=== PATIENT | female | born 1970 | race African-American/Black ===

== ENCOUNTER 2016-12-11 10:05 | Emergency (ER) | payer MEDICAID ==
[~2016-12-11] VITALS: Ht 170.2 cm; Wt 140.0 kg
[2016-12-11 10:20] VITALS: BP 153/73
--- NOTE | 2016-12-11 10:29 | NUR ---
AMBULATED TO ER BED 8
--- NOTE | 2016-12-11 10:31 | NUR ---
44 PRESENT TO ER C/O SEVERE ITCHING ON BILATERAL ARMS X4 DAYS. PT STATES SHE SLEPT AT A FRIENDS COUCH THIS LAST WEEKEND. PT STATES SHE IS CONCERNED THAT SHE MIGHT HAVE BED BUGS. PT STATES SHE HAS BEEN TAKING OTC BENADRYL TO CONTROL THE ITCHING. AAOx4, PERRLA, BREATHING EVEN AND EFFORTLESS. ERMD NOTIFIED OF PATIENT STATUS.
--- NOTE | 2016-12-11 10:33 | NUR ---
Patient being evaluated by physician at bedside.
--- NOTE | 2016-12-11 11:04 | NUR ---
Patient discharged with v/s stable. Written and verbal after care instructions given and explained. Patient alert, oriented and verbalized understanding of instructions. Ambulatory with steady gait. All questions addressed prior to discharge. ID band removed. Patient advised to follow up with PMD. Rx of MEDROL DOSEPAK 4MG TABLET given. Patient educated on indication of medication including possible reaction and side effects. Opportunity to ask questions provided and answered.
[2016-12-11 11:05] VITALS: BP 153/73
== END 2016-12-11 11:05 | disposition home or self-care (01) ==
LOC: EDBD 10:05 → MED 10:05
DX: L29.9 Pruritus, unspecified (principal); E11.9 Type 2 diabetes mellitus without complications; I50.9 Heart failure, unspecified; I11.0 Hypertensive heart disease with heart failure
CPT/HCPCS: 99283

== ENCOUNTER 2016-12-17 08:33 | Emergency (ER) | payer MEDICAID ==
[~2016-12-17] VITALS: Ht 167.6 cm; Wt 138.8 kg
[2016-12-17 08:50] VITALS: BP 152/67
--- NOTE | 2016-12-17 09:00 | NUR ---
46/F BIB FAMILY C/O HEADACHE, SORE THROAT, COUGH &SOB X4 DAYS. HX COPD, DM, HTN. DENIES N/V/D; SKIN IS PINK/WARM/DRY; AAOX4 WITH EVEN AND STEADY GAIT; LUNGS CLEAR BL; HR EVEN AND REGULAR;PATIENT STATES PAIN OF 5/10 AT THIS TIME; VSS; PATIENT POSITIONED FOR COMFORT; HOB ELEVATED; BEDRAILS UP X2; BED DOWN. ER MD MADE AWARE OF PT STATUS.
--- NOTE | 2016-12-17 09:00 | NUR ---
Ling wise in EDM - 12/17/16 at 0921 by MED1 46/F BIB FAMILY C/O SORE THROAT, COUGH &SOB X4 DAYS. HX COPD, DM, HTN.
--- NOTE | 2016-12-17 09:20 | NUR ---
Patient being evaluated by DR SMITH at bedside.
[2016-12-17] MEDS ORDERED: ALBUTEROL 0.083% 2.5 MG/3 ML NEBU INH ONE (09:25)
[2016-12-17] MEDS ORDERED: ALBUTEROL SULFATE/IPRATROPIU 3 ML SOL IH ONE (09:25)
[2016-12-17] MEDS ORDERED: predniSONE 20 MG TAB PO ONE (09:25)
--- NOTE | 2016-12-17 09:31 | NUR ---
ADMITTING DX: SHORTNESS OF BREATH HX: PATIENT STATES COPD/ASTHMA LOC AWAKE AND ALERT RESPONSIVE TO LEARNING ENGINEER VERBAL COMMANDS SITTING ON GURNEY EDUCATION PROVIDED TO PATIENT WITH ACKNOWLEDGEMENT ON HHN THERAPY AND RESPIRATORY DRUGS HHN THERAPY GIVEN ORDERED ENCOURAGED PATEINT FO DEEP BREATHING DURING THERAPY TOLERATED WELL WIHOUT INCIDENT
--- NOTE | 2016-12-17 09:33 | NUR ---
RT AT BEDSIDE FOR 1ST BREATHING TREATMENT.
--- NOTE | 2016-12-17 09:54 | NUR ---
Patient discharged with v/s stable. Written and verbal after care instructions given and explained. Patient alert, oriented and verbalized understanding of instructions. Ambulatory with steady gait. All questions addressed prior to discharge. ID band removed. Patient advised to follow up with PMD. Rx of AZITHROMYCIN& PREDNISONE given. Patient educated on indication of medication including possible reaction and side effects. Opportunity to ask questions provided and answered.
[2016-12-17 09:55] VITALS: BP 128/61
== END 2016-12-17 09:54 | disposition home or self-care (01) ==
LOC: MED 08:33
DX: J44.9 Chronic obstructive pulmonary disease, unspecified (principal); R06.02 Shortness of breath; R05 Cough; I50.9 Heart failure, unspecified; E11.9 Type 2 diabetes mellitus without complications; I10 Essential (primary) hypertension
CPT/HCPCS: 82948; 94640; 99283; J7512; J7613; J7620

== ENCOUNTER 2017-02-16 20:11 | Emergency (ER) | payer MEDICAID ==
[~2017-02-16] VITALS: Ht 167.6 cm; Wt 140.6 kg
[~2017-02-16 20:11] MED LIST: ALPRAZOLAM 2 MG; AMLODIPINE BESYLATE 10 MG; ASPIRIN 325 MG; DIPHENHYDRAMINE 25 MG; HYDRALAZINE 50 MG; KLOR CON 8 MEQ; LOSARTAN POTASSIUM 100 MG; LYRICA 75 MG; METFORMIN HCL 500 MG TABLET; OXYCODONE APAP; QUETIAPINE FUMARATE 100 MG; RISPERIDONE 3 MG TABLET; SIMVASTATIN 20 MG TABLET; SYMBICORT; TERCONAZOLE; TIOTROPIUM; TOPIRAMATE 50 MG TABLET; [UNRECOGNIZED DRUG - OTHER]; [UNRECOGNIZED DRUG - OTHER]; [UNRECOGNIZED DRUG - OTHER]; [UNRECOGNIZED DRUG - OTHER]; [UNRECOGNIZED DRUG - OTHER]; [UNRECOGNIZED DRUG - SUPPLY]
[2017-02-16 20:14] VITALS: BP 120/75
--- NOTE | 2017-02-16 20:35 | NUR ---
TO ER BED 11
--- NOTE | 2017-02-16 20:39 | NUR ---
PATIENT PRESENTS TO ED WITH C/O GENERALIZED BODYACHES AND FATIGUE X 3 DAYS PT DENIES N/V/D; SKIN IS PINK/WARM/DRY; AAOX4 WITH EVEN AND STEADY GAIT; LUNGS CLEAR BL; HR EVEN AND REGULAR; PT DENIES ANY FEVER, CP, SOB, OR COUGH AT THIS TIME; PATIENT STATES PAIN OF 8/10 AT THIS TIME; VSS; PATIENT POSITIONED FOR COMFORT; HOB ELEVATED; BEDRAILS UP X2; BED DOWN. ER MD MADE AWARE OF PT STATUS.
[2017-02-16] MEDS ORDERED: NACL 0.9% 1,000 ML IV ONE (21:10)
[2017-02-16] MEDS ORDERED: KETOROLAC 30 MG/ML VIAL IVP ONE (21:10)
[2017-02-16 21:47] LABS: APPEARANCE,URINE CLOUDY (CLEAR); BILIRUBIN,URINE NEGATIVE (NEGATIVE); BLOOD, URINE NEGATIVE (NEGATIVE); COLOR,URINE YELLOW (YELLOW); LEUKOCYTE ESTERASE ,URINE 3+ (NEGATIVE); NITRITE, URINE NEGATIVE (NEGATIVE); PH,URINE 6.5 (5.0-9.0); UGLUCOSE NEGATIVE (NEGATIVE)
[2017-02-16 21:54] LABS: RBC,URINE 0-5 (RARE) /HPF (0-5); WBC,URINE TOO MANY TO COUNT /HPF (0-5)
[2017-02-16] MEDS ORDERED: cefTRIAXone 2,000 MG in DEXTROSE 5% 100 ML IV ONE (22:20)
[2017-02-16 22:30] LABS: BASOPHILS # (AUTO) 0.4 K/uL (0.00-0.22); BASOPHILS % (AUTO) 4.9 % (0.0-2.0); EOSINOPHILS # (AUTO) 0.1 K/uL (0-0.4); EOSINOPHILS % (AUTO) 1.3 % (0.0-4.0); HEMATOCRIT 37.8 % (36-48); HEMOGLOBIN 12.3 g/dL (12.0-16.0); LYMPHOCYTES # (AUTO) 3.1 K/uL (2.5-16.5); LYMPHOCYTES % (AUTO) 38.9 % (20.5-51.1); MEAN CORPUSCULAR HEMOGLOBIN 29 pg (27-31); MEAN CORPUSCULAR HGB CONC 33 g/dL (33-37); MEAN CORPUSCULAR VOLUME 88 fL (80-94); MONOCYTES # (AUTO) 0.6 K/uL (0.8-1.0); MONOCYTES % (AUTO) 7.6 % (1.7-9.3); NEUTROPHILS # (AUTO) 3.8 K/uL (1.8-7.7); NEUTROPHILS % (AUTO) 47.3 % (42.2-75.2); PLATELET COUNT (AUTO) 167 K/uL (140-450); RED BLOOD CELL COUNT(AUTO) 4.28 MIL/uL (4.20-5.40); RED CELL DISTRIBUTION WIDTH 13.8 % (11.6-13.7)
[2017-02-16] MEDS ORDERED: cefTRIAXone 2,000 MG VIAL ONE (22:32)
[2017-02-16 22:57] LABS: ALBUMIN 3.4 g/dL (3.4-5.0); ANION GAP 11.8 (8-16); CARBON DIOXIDE 26.6 mmol/L (21-32); CREATININE 1.1 mg/dL (0.6-1.3); POTASSIUM 3.4 mmol/L (3.5-5.1); THYROID STIMULATING HORMONE 3.98 uIU/mL (0.34-3.74); TOTAL BILIRUBIN 0.2 mg/dL (0.0-1.0)
[2017-02-16 23:10] VITALS: BP 119/72
--- NOTE | 2017-02-16 23:11 | NUR ---
Patient discharged with v/s stable. Written and verbal after care instructions given and explained. Patient alert, oriented and verbalized understanding of instructions. Ambulatory with steady gait. All questions addressed prior to discharge. ID band removed. Patient advised to follow up with PMD. Rx of CIPRO 750MG BID given. Patient educated on indication of medication including possible reaction and side effects. Opportunity to ask questions provided and answered.
== END 2017-02-16 23:10 | disposition home or self-care (01) ==
LOC: MED 20:11
DX: N39.0 Urinary tract infection, site not specified (principal); J44.9 Chronic obstructive pulmonary disease, unspecified; E11.9 Type 2 diabetes mellitus without complications; I10 Essential (primary) hypertension; Z79.82 Long term (current) use of aspirin; Z79.899 Other long term (current) drug therapy; Z79.4 Long term (current) use of insulin
CPT/HCPCS: 36415; 80053; 81001; 81025; 84443; 85025; 87086; 96365; 96375; 99284; J0696; J1885; J7030

== ENCOUNTER 2017-04-06 08:28 | Emergency (ER) | payer MEDICAID ==
[~2017-04-06] VITALS: Ht 165.1 cm; Wt 135.7 kg
[2017-04-06 09:26] VITALS: BP 118/84
--- NOTE | 2017-04-06 10:39 | NUR ---
ASSUMED PATIENT CARE, CONCUR WITH TRIAGE ASSESSMENT.
[2017-04-06] MEDS ORDERED: HYDROcodone/APAP 5/325 MG 1 TAB TAB PO ONE (11:25)
[2017-04-06] MEDS ORDERED: KETOROLAC 60 MG/2 ML VIAL IM ONE (11:25)
--- NOTE | 2017-04-06 13:09 | NUR ---
DISPO AND MEDICAL DECISION MAKING, DC HOME WITH INSTRUCTIONS AND PRESCRIPTIONS, UNDERSTOOD BY PATIENT WELL, VSWNL.
== END 2017-04-06 13:09 | disposition home or self-care (01) ==
LOC: MED 08:28
DX: S73.102A Unspecified sprain of left hip, initial encounter (principal); S43.401A Unspecified sprain of right shoulder joint, initial encounter; E11.9 Type 2 diabetes mellitus without complications; I10 Essential (primary) hypertension; M79.7 Fibromyalgia; Z86.73 Personal history of transient ischemic attack (TIA), and cerebral infarction without residual deficits; W18.2XXA Fall in (into) shower or empty bathtub, initial encounter; Y93.89 Activity, other specified; Y92.091 Bathroom in other non-institutional residence as the place of occurrence of the external cause; Y99.8 Other external cause status
CPT/HCPCS: 73030; 73552; 96372; 99284; J1885

== ENCOUNTER 2017-04-17 08:35 | Emergency (ER) | payer MEDICAID ==
[~2017-04-17] VITALS: Ht 167.6 cm; Wt 131.1 kg
--- NOTE | 2017-04-17 08:40 | NUR ---
CALLED PT TO TRIAGE. PT WAS STANDING TO COME TO TRIAGE AND STATES " I LOST MY BALANCE AND FELL"; I WAS HOLDING THE DOOR OPEN FOR PT WHILE PT WAS STANDING. I IMMEDIATELY GOT A WHEELCHAIR AND ASSISTED THE PT TO TRIAGE; AFTER TRIAGE, PT TAKEN TO BED 10 AND PT STATEED " I CAN GET TO THE BED BY MYSELF"; PT ABLE TO GET TO THE BED, BUT C/O RT HIP PAIN, 5/10 AT THIS TIME; OFFERED PT ICE, BUT PT STATES "I'M OK"; NO OBIVIOUS DEFORMITY, NO ERYTHEMA, AND NO SWELLING NOTED TO SITE AT THIS TIME; ER MD DR. HENDERSON, CHARGE NURSE COLIN, AND PRIMARY NURSE NOTIFIED.
[2017-04-17 08:41] VITALS: BP 119/52
--- NOTE | 2017-04-17 08:48 | NUR ---
Patient to bed 10. RN evaluating patient at bedside.
--- NOTE | 2017-04-17 08:50 | NUR ---
46F BIB SELF C/O LEFT FOOT, 4TH DIGIT PAIN S/P GETTING 2 PACKS OF FROZEN TURKEY, AND A PACK OF HOT LINKS FALLING ON TOE X LAST NIGHT. HX: DM, COPD, HTN, ENLARGED HEART, FIBROMYALGIA, NEUROPATHY, SCIATICA, SCHIZOEFFECTIVE RX: SEROQUEL, RISPERADOL, XANAX, METFORMIN, PT STATES " THE REST IS IN HERE" . DENIES N/V/D; SKIN IS PINK/WARM/DRY; AAOX4 WITH EVEN AND STEADY GAIT; LUNGS CLEAR BL; HR EVEN AND REGULAR; PT DENIES ANY FEVER, CP, SOB, OR COUGH AT THIS TIME; PATIENT STATES PAIN OF 10/10 AT THIS TIME; VSS; PATIENT POSITIONED FOR COMFORT; HOB ELEVATED; BEDRAILS UP X2; BED DOWN. ER MD MADE AWARE OF PT STATUS.
[2017-04-17] MEDS ORDERED: KETOROLAC 60 MG/2 ML VIAL IM ONE (10:00)
--- NOTE | 2017-04-17 10:44 | NUR ---
BREAKFAST TRAY PROVIDED TO AAO, COOPERATIVE PT
[2017-04-17] MEDS ORDERED: HYDROcodone/APAP 5/325 MG 1 TAB TAB PO ONE (11:50)
--- NOTE | 2017-04-17 11:54 | NUR ---
AAO PT AMBULATES TO THE RESTROOM
[2017-04-17 12:05] VITALS: BP 147/83
--- NOTE | 2017-04-17 12:05 | NUR ---
Patient discharged with v/s stable. Written and verbal after care instructions given and explained. Patient alert, oriented and verbalized understanding of instructions. Ambulatory with steady gait. All questions addressed prior to discharge. ID band removed. Patient advised to follow up with PMD. Rx of NORCO, IBUPROFEN given. Patient educated on indication of medication including possible reaction and side effects. Opportunity to ask questions provided and answered.
== END 2017-04-17 12:05 | disposition home or self-care (01) ==
LOC: MED 08:35
DX: S92.505A Nondisplaced unspecified fracture of left lesser toe(s), initial encounter for closed fracture (principal); J44.9 Chronic obstructive pulmonary disease, unspecified; E11.9 Type 2 diabetes mellitus without complications; I10 Essential (primary) hypertension; Z86.73 Personal history of transient ischemic attack (TIA), and cerebral infarction without residual deficits; W20.8XXA Other cause of strike by thrown, projected or falling object, initial encounter; Y93.89 Activity, other specified; Y92.89 Other specified places as the place of occurrence of the external cause; Y99.8 Other external cause status
CPT/HCPCS: 73660; 96372; 99284; J1885

== ENCOUNTER 2017-04-29 07:22 | Emergency (ER) | payer MEDICAID ==
[~2017-04-29] VITALS: Ht 167.6 cm; Wt 134.3 kg
[2017-04-29 07:24] VITALS: BP_SYST 114; BP_SYST 94; BP_DIAS 39; BP_DIAS 68
--- NOTE | 2017-04-29 07:30 | NUR ---
Pt taken to bed 12.
--- NOTE | 2017-04-29 07:40 | NUR ---
46f bib self with rash to bl hands and feet x 2 days with itchness. no swelling noted to tongue, lips, or face. Pt denies any sob at this time. No visible rash to bl upper or lower extremities. Pt is aox4 with steady gait. RR are even and unlabored. Pt positioned to comfort, bed down. NAD. All needs met at this time.
--- NOTE | 2017-04-29 07:45 | NUR ---
DR REGALADO AT BEDSIDE
[2017-04-29 08:00] VITALS: BP 114/68
--- NOTE | 2017-04-29 08:00 | NUR ---
Patient discharged with v/s stable. Written and verbal after care instructions given and explained. Patient alert, oriented and verbalized understanding of instructions. Ambulatory with steady gait. All questions addressed prior to discharge. ID band removed. Patient advised to follow up with PMD. Rx of Elimite given. Patient educated on indication of medication including possible reaction and side effects. Opportunity to ask questions provided and answered.
== END 2017-04-29 08:00 | disposition home or self-care (01) ==
LOC: MED 07:22
DX: L29.9 Pruritus, unspecified (principal); J44.9 Chronic obstructive pulmonary disease, unspecified; E11.9 Type 2 diabetes mellitus without complications; I10 Essential (primary) hypertension; Z86.73 Personal history of transient ischemic attack (TIA), and cerebral infarction without residual deficits; Z79.899 Other long term (current) drug therapy
CPT/HCPCS: 82948; 99282

== ENCOUNTER 2017-06-29 12:27 | Emergency (ER) | payer MEDICAID ==
[~2017-06-29] VITALS: Ht 170.2 cm; Wt 139.7 kg
[2017-06-29 12:32] VITALS: BP 129/81
[2017-06-29 12:50] VITALS: BP 129/81
--- NOTE | 2017-06-29 12:53 | NUR ---
PATIENT BIB SELF FOR SMALL LACERATION TO RIGHT ANKLE, NO BLEEDING. TO BED 11 WOUND WAS CLEANED AND DRESSED AND BANDAGE APPLIED PATIENT THEN GOT UP AND LEFT.
--- NOTE | 2017-06-29 12:54 | NUR ---
NO DISCHARGE INSTRUCTIONS OR PAPERWORK GIVEN PATIENT ELOPED AFTER TREATMENT.
== END 2017-06-29 12:50 | disposition left against medical advice (07) ==
LOC: MED 12:27
DX: S91.012A Laceration without foreign body, left ankle, initial encounter (principal); J44.9 Chronic obstructive pulmonary disease, unspecified; E11.9 Type 2 diabetes mellitus without complications; F03.90 Unspecified dementia, unspecified severity, without behavioral disturbance, psychotic disturbance, mood disturbance, and anxiety; Z86.73 Personal history of transient ischemic attack (TIA), and cerebral infarction without residual deficits; X58.XXXA Exposure to other specified factors, initial encounter; Y93.89 Activity, other specified; Y92.89 Other specified places as the place of occurrence of the external cause; Y99.8 Other external cause status
CPT/HCPCS: 99283

== ENCOUNTER 2017-07-04 14:07 | Emergency (ER) | payer MEDICAID ==
[~2017-07-04] VITALS: Ht 170.2 cm; Wt 142.1 kg
[2017-07-04 14:13] VITALS: BP 148/81
--- NOTE | 2017-07-04 14:22 | NUR ---
PATIENT TO BED #3 VIA W/C
--- NOTE | 2017-07-04 14:35 | NUR ---
PATIENT PRESENTS TO ED WITH C/O ABRASION ON LATERAL LT ANKLE FROM SHAVING X 5 DAYS HX; HTN, DM, CHF . PATIENT STATES PAIN OF 8/10 AT THIS TIME; VSS; PATIENT POSITIONED FOR COMFORT; HOB ELEVATED; BEDRAILS UP X2; BED DOWN. ER MD MADE AWARE OF PT STATUS.
[2017-07-04] MEDS ORDERED: KETOROLAC 30 MG/ML VIAL IM ONE (14:50)
[2017-07-04] MEDS ORDERED: NEOMYCIN/POLYMYXIN/BACITRACIN 0.9 GM/1 PKT TP ONE (14:50)
--- NOTE | 2017-07-04 14:55 | NUR ---
XRAY AT BEDSIDE
--- NOTE | 2017-07-04 15:20 | NUR ---
WOUND CARE DONE BY EMT AT BEDSIDE, PT TOLERATED WELL.
[2017-07-04 16:05] VITALS: BP 138/87
--- NOTE | 2017-07-04 16:05 | NUR ---
Patient discharged with v/s stable. Written and verbal after care instructions given and explained. Patient alert, oriented and verbalized understanding of instructions. Ambulatory with steady gait. All questions addressed prior to discharge. ID band removed. Patient advised to follow up with PMD. Rx of NORCO, NAPROSYN, KEFLEX given. Patient educated on indication of medication including possible reaction and side effects. Opportunity to ask questions provided and answered.
== END 2017-07-04 16:05 | disposition home or self-care (01) ==
LOC: MED 14:07
DX: S90.512A Abrasion, left ankle, initial encounter (principal); M25.472 Effusion, left ankle; J44.9 Chronic obstructive pulmonary disease, unspecified; E11.9 Type 2 diabetes mellitus without complications; I10 Essential (primary) hypertension; F03.90 Unspecified dementia, unspecified severity, without behavioral disturbance, psychotic disturbance, mood disturbance, and anxiety; Z79.899 Other long term (current) drug therapy; Z79.84 Long term (current) use of oral hypoglycemic drugs; Z86.73 Personal history of transient ischemic attack (TIA), and cerebral infarction without residual deficits; W27.8XXA Contact with other nonpowered hand tool, initial encounter; Y93.89 Activity, other specified; Y92.89 Other specified places as the place of occurrence of the external cause; Y99.8 Other external cause status
CPT/HCPCS: 29515; 73610; 82948; 96372; 99284; J1885

== ENCOUNTER 2017-08-06 20:56 | Emergency (ER) | payer MEDICAID ==
[~2017-08-06] VITALS: Ht 167.6 cm; Wt 140.2 kg
[2017-08-06 21:00] VITALS: BP 136/60
--- NOTE | 2017-08-06 21:05 | NUR ---
PATIENT AMBULATED TO ER BED 4
--- NOTE | 2017-08-06 21:05 | NUR ---
47/F came in w c/o 01/12 Rt arm pain s/p getting B12 shot x 1 week ago. +PSC to Rt arm with limited ROM to Rt shoulder d/t pain.Mild swelling noted to Rt hand, no erythema/echymosis noted. Denies any trauma/injury. PMH:DM, HTN, COPD, FIBROYMYALGIA
[2017-08-06] MEDS ORDERED: HYDROcodone/APAP 5/325 MG 1 TAB TAB PO ONE (21:25)
[2017-08-06] MEDS ORDERED: DEXAMETHASONE 10 MG/ML VIAL IM ONE (21:25)
--- NOTE | 2017-08-06 23:21 | NUR ---
Note ángelaflako in EDM - 08/06/17 at 2326 by [facility] Patient discharged with v/s stable. Written and verbal after care instructions given and explained to parent/guardian. Parent/Guardian verbalized understanding of instructions. Carried with by parent. All questions addressed prior to discharge. ID band removed. Parent/Guardian advised to follow up with PMD. Rx of SEPTRA, IBUPROFEN AND PEDIALYTE given. Parent/Guardian educated on indication of medication including possible reaction and side effects. Opportunity to ask questions provided and answered.
[2017-08-06 23:28] VITALS: BP 136/60
--- NOTE | 2017-08-06 23:28 | NUR ---
Patient discharged with v/s stable. Written and verbal after care instructions given and explained. Patient alert, oriented and verbalized understanding of instructions. Ambulatory with steady gait. All questions addressed prior to discharge. ID band removed. Patient advised to follow up with PMD. Rx of VOLTAREN XR 100 MG EXTENDED-RELEASE given. Patient educated on indication of medication including possible reaction and side effects. Opportunity to ask questions provided and answered.
== END 2017-08-06 23:28 | disposition home or self-care (01) ==
LOC: MED 20:56
DX: S46.911A Strain of unspecified muscle, fascia and tendon at shoulder and upper arm level, right arm, initial encounter (principal); I10 Essential (primary) hypertension; E11.9 Type 2 diabetes mellitus without complications; F03.90 Unspecified dementia, unspecified severity, without behavioral disturbance, psychotic disturbance, mood disturbance, and anxiety; J44.9 Chronic obstructive pulmonary disease, unspecified; Z86.73 Personal history of transient ischemic attack (TIA), and cerebral infarction without residual deficits; Z79.84 Long term (current) use of oral hypoglycemic drugs; Z79.82 Long term (current) use of aspirin; X58.XXXA Exposure to other specified factors, initial encounter; Y93.89 Activity, other specified; Y92.89 Other specified places as the place of occurrence of the external cause; Y99.8 Other external cause status
CPT/HCPCS: 73030; 81025; 96372; 99284; J1100; Q0092

== ENCOUNTER 2018-12-26 07:53 | Emergency (ER) | payer MEDICAID ==
[~2018-12-26] VITALS: Ht 167.6 cm; Wt 149.4 kg
[2018-12-26 07:56] VITALS: BP 124/68
--- NOTE | 2018-12-26 08:35 | NUR ---
PT TO ED FOR C/O SOB AND ABSCESS TO BACK. LUNG SOUNDS CLEAR TO ASCULTATION BILATERALLY. NO APPARENT DISTRESS NOTED. ABSCESS TO UPPER/MIDDLE BACK NOTED. PT STATES "MY DOCTOR TRIED TO DRAIN IT AND NOW IT LOOKS LIKE THIS" OBVIOUS DRAINAGE NOTED. NO FOUL ODOR NOTED. PT PLACED INTO BED FOR MD WISEMAN.
[2018-12-26 09:06] LABS: ALBUMIN 3.2 g/dL (3.4-5.0); ANION GAP 17.3 (8-16); CARBON DIOXIDE 23.6 mmol/L (21-32); CREATININE 0.9 mg/dL (0.6-1.3); POTASSIUM 3.9 mmol/L (3.5-5.1); TOTAL BILIRUBIN 0.3 mg/dL (0.0-1.0)
[2018-12-26 09:31] LABS: BASOPHILS # (AUTO) 0.1 K/uL (0.00-0.22); BASOPHILS % (AUTO) 0.5 % (0.0-2.0); EOSINOPHILS # (AUTO) 0.1 K/uL (0-0.4); EOSINOPHILS % (AUTO) 0.8 % (0.0-4.0); HEMATOCRIT 37.3 % (36-48); HEMOGLOBIN 11.9 g/dL (12.0-16.0); LYMPHOCYTES # (AUTO) 2.4 K/uL (2.5-16.5); LYMPHOCYTES % (AUTO) 22.6 % (20.5-51.1); MEAN CORPUSCULAR HEMOGLOBIN 28 pg (27-31); MEAN CORPUSCULAR HGB CONC 32 g/dL (33-37); MEAN CORPUSCULAR VOLUME 87.8 fL (80-94); MONOCYTES # (AUTO) 1.1 K/uL (0.8-1.0); MONOCYTES % (AUTO) 10.2 % (1.7-9.3); NEUTROPHILS % (AUTO) 65.9 % (42.2-75.2); PLATELET COUNT (AUTO) 190 K/uL (140-450); RED BLOOD CELL COUNT(AUTO) 4.24 MIL/uL (4.20-5.40); RED CELL DISTRIBUTION WIDTH 15.4 % (11.6-13.7); WHITE BLOOD COUNT (AUTO) 10.6 K/uL (4.8-10.8)
--- NOTE | 2018-12-26 10:56 | NUR ---
AMBULATORY TO RESTROOM.
[2018-12-26] MEDS ORDERED: LIDOCAINE 1% ***ER ONLY *** 10 MG/ML VIAL INJ ONE (11:20)
[2018-12-26] MEDS ORDERED: LIDOCAINE MPF 1% - 5 mL VIAL 5 ML ONE (11:20)
--- NOTE | 2018-12-26 11:30 | NUR ---
IV removed, catheter intact and site benign. Applied folded 4x4 gauze and tape to stop bleeding.
--- NOTE | 2018-12-26 11:43 | NUR ---
PLACED NON ADHERENT GAUZE AND DRESSING ON PATIENT'S ABSCESS ON BACK
--- NOTE | 2018-12-26 11:55 | NUR ---
Patient discharged with v/s stable. PT REFUSED PAPER D/C INSTRUCTIONS STATING "THTS TOO MUCH PAPER I DONT NEED ALL THAT" PT TOOK PAPER RX. Patient alert, oriented and verbalized understanding of instructions. Ambulatory with steady gait. All questions addressed prior to discharge. ID band removed. Patient advised to follow up with PMD. Rx of NORCO, MOTRIN, BACTRIM,KEFLEX given. Patient educated on indication of medication including possible reaction and side effects. Opportunity to ask questions provided and answered.
[2018-12-26 11:58] VITALS: BP 131/71
== END 2018-12-26 11:55 | disposition home or self-care (01) ==
LOC: MED 07:53
DX: L02.212 Cutaneous abscess of back [any part, except buttock and flank] (principal); R06.02 Shortness of breath; N39.0 Urinary tract infection, site not specified; I25.2 Old myocardial infarction; Z86.73 Personal history of transient ischemic attack (TIA), and cerebral infarction without residual deficits; J44.9 Chronic obstructive pulmonary disease, unspecified; E11.9 Type 2 diabetes mellitus without complications; I10 Essential (primary) hypertension; F17.200 Nicotine dependence, unspecified, uncomplicated; Z85.41 Personal history of malignant neoplasm of cervix uteri; Z98.890 Other specified postprocedural states; Z79.84 Long term (current) use of oral hypoglycemic drugs; Z79.899 Other long term (current) drug therapy; Z79.82 Long term (current) use of aspirin
CPT/HCPCS: 36415; 71045; 80053; 81002; 81025; 82948; 83880; 84484; 85025; 87040; 93005; 99284; J2001; Q0092

== ENCOUNTER 2018-12-27 08:29 | Emergency (ER) | payer MEDICAID ==
[~2018-12-27] VITALS: Ht 167.6 cm; Wt 145.1 kg
[2018-12-27 08:35] VITALS: BP 115/65
--- NOTE | 2018-12-27 08:43 | NUR ---
Patient ambulated to bed 11 with family. RN evaluating patient at bedside.
--- NOTE | 2018-12-27 08:52 | NUR ---
PT C/O HIVES X LAST NIGHT AFTER TAKING 3 DOSES OF KEFLEX AND 2 DOSES OF BACTRIM. RR EVEN AND NON-LABORED, BREATH SOUNDS CLEAR, NO FACIAL SWELLING, AIRWAY PATENT, RASH BL HANDS, ARMS, AND LEGS. PT seen YESTERDAY in our ER FOR abscess to mid back, draining, PRESCRIBED BACTRIM AND KEFLEX. VSS. ER MD TO SEE PT. hx---copd, dm, htn, hyperlipidemia, fatty liver, cad, chf, CVA rx---see list
[2018-12-27 10:18] VITALS: BP 158/70
--- NOTE | 2018-12-27 10:18 | NUR ---
Patient discharged with v/s stable. Written and verbal after care instructions given and explained. Patient alert, oriented and verbalized understanding of instructions. Ambulatory with steady gait. All questions addressed prior to discharge. ID band removed. Patient advised to follow up with PMD. Rx of clindamycin given. Patient educated on indication of medication including possible reaction and side effects. Opportunity to ask questions provided and answered.
== END 2018-12-27 10:18 | disposition home or self-care (01) ==
LOC: MED 08:29
DX: T78.40XA Allergy, unspecified, initial encounter (principal); L03.312 Cellulitis of back [any part except buttock and flank]; J44.9 Chronic obstructive pulmonary disease, unspecified; I10 Essential (primary) hypertension; E11.9 Type 2 diabetes mellitus without complications; I25.2 Old myocardial infarction; Z79.82 Long term (current) use of aspirin; Z86.73 Personal history of transient ischemic attack (TIA), and cerebral infarction without residual deficits; Z79.899 Other long term (current) drug therapy; Z79.1 Long term (current) use of non-steroidal anti-inflammatories (NSAID); X58.XXXA Exposure to other specified factors, initial encounter
CPT/HCPCS: 99283

== ENCOUNTER 2019-06-16 16:14 | Observation (INO) | payer MEDICAID ==
[~2019-06-16] VITALS: Ht 167.6 cm; Wt 148.8 kg
[2019-06-16] VITALS: BP 150/93
[2019-06-16 16:33] VITALS: BP 162/81
[2019-06-16] MEDS ORDERED: NITROGLYCERIN 2% 1 GM PKT TP ONE ×2 (17:10→18:37)
[2019-06-16] MEDS ORDERED: METOPROLOL 25 MG TAB PO ONE (17:10)
[2019-06-16] MEDS ORDERED: MORPHINE SULFATE 2 MG/ML SYR IVP ONE (17:10)
[2019-06-16 17:25] LABS: BILIRUBIN,URINE NEGATIVE (NEGATIVE); BLOOD, URINE NEGATIVE (NEGATIVE); COLOR,URINE YELLOW (YELLOW); LEUKOCYTE ESTERASE ,URINE 1+ (NEGATIVE); NITRITE, URINE NEGATIVE (NEGATIVE); UGLUCOSE NEGATIVE (NEGATIVE)
[2019-06-16 17:34] LABS: APPEARANCE,URINE HAZY (CLEAR)
[2019-06-16 17:40] LABS: CALCIUM OXALATE CRYSTALS,UR 0-10 /HPF (None Seen); RBC,URINE NONE SEEN /HPF (0-5)
[2019-06-16 17:49] LABS: BASOPHILS # (AUTO) 0.1 K/uL (0.00-0.22); BASOPHILS % (AUTO) 0.9 % (0.0-2.0); EOSINOPHILS # (AUTO) 0.1 K/uL (0-0.4); EOSINOPHILS % (AUTO) 1.5 % (0.0-4.0); HEMATOCRIT 41.9 % (36-48); HEMOGLOBIN 13.6 g/dL (12.0-16.0); LYMPHOCYTES # (AUTO) 3.2 K/uL (2.5-16.5); MEAN CORPUSCULAR HEMOGLOBIN 29 pg (27-31); MEAN CORPUSCULAR HGB CONC 32 g/dL (33-37); MEAN CORPUSCULAR VOLUME 88.9 fL (80-94); MONOCYTES # (AUTO) 0.6 K/uL (0.8-1.0); MONOCYTES % (AUTO) 8.8 % (1.7-9.3); NEUTROPHILS # (AUTO) 3.2 K/uL (1.8-7.7); NEUTROPHILS % (AUTO) 44.8 % (42.2-75.2); PLATELET COUNT (AUTO) 169 K/uL (140-450); RED BLOOD CELL COUNT(AUTO) 4.71 MIL/uL (4.20-5.40); RED CELL DISTRIBUTION WIDTH 15.3 % (11.6-13.7); WHITE BLOOD COUNT (AUTO) 7.2 K/uL (4.8-10.8)
[2019-06-16 18:06] LABS: ANION GAP 13.1 (8-16); CARBON DIOXIDE 27.5 mmol/L (21-32); CREATININE 1.1 mg/dL (0.6-1.3); POTASSIUM 3.6 mmol/L (3.5-5.1); TOTAL BILIRUBIN 0.1 mg/dL (0.0-1.0)
[2019-06-16 18:16] LABS: PROTHROMBIN TIME 9.1 secs (10.8-13.4)
[2019-06-16] MEDS ORDERED: LEVOFLOXACIN 500 MG TAB PO ONE (18:30)
[2019-06-16] MEDS ORDERED: METOPROLOL 25 MG TAB ONE (18:36)
[2019-06-16] MEDS ORDERED: ASPIRIN 81 MG TAB.CHEW PO ONE (18:45)
[2019-06-16] MEDS ORDERED: MORPHINE SULFATE 2 MG/ML SYR IM ONE (18:45)
[2019-06-16] MEDS ORDERED: NACL 0.9% 1,000 ML IV SCH (18:58)
[2019-06-16] MEDS ORDERED: DOCUSATE SODIUM 100 MG GELCAP PO PRN (19:00)
[2019-06-16] MEDS ORDERED: DEXTROSE 50% 50 ML SYR IVP PRN (19:00)
[2019-06-16] MEDS ORDERED: INSULIN LISPRO SLIDING SCALE 100 UNITS/ML VIAL SUBQ PRN (19:00)
[2019-06-16] MEDS ORDERED: ZOLPIDEM 5 MG TAB PO PRN (19:00)
[2019-06-16] MEDS ORDERED: ONDANSETRON 4 MG/2 ML VIAL IM/IVP PRN (19:00)
[2019-06-16] MEDS ORDERED: NITROGLYCERIN 0.4 MG TAB SL SCH (19:00)
[2019-06-16] MEDS ORDERED: ALBUTEROL SULFATE/IPRATROPIU 3 ML SOL IH PRN (19:00)
[2019-06-16] MEDS ORDERED: ACETAMINOPHEN 325 MG TAB PO PRN (19:00)
[2019-06-16 19:32] VITALS: BP 158/86
[2019-06-16 19:45] LABS: BARBITURATE, URINE NEGATIVE ng/ml (NEG <=200); BENZODIAZEPINE, URINE POSITIVE ng/mL (NEG <=200); CANNABINOID, URINE POSITIVE ng/mL (NEG <=50); COCAINE, URINE NEGATIVE ng/mL (NEG <=300); OPIATE, URINE NEGATIVE ng/mL (NEG <=2000); PHENCYCLIDINE SCREEN,URINE NEGATIVE ng/mL (NEG <=25)
[2019-06-16 19:48] LABS: FREE T4 (FREE THYROXINE) 1.03 ng/dL (0.76-1.46); MAGNESIUM 2.1 mg/dL (1.8-2.4); THYROID STIMULATING HORMONE 1.7 uIU/mL (0.34-3.74)
[2019-06-16] MEDS ORDERED: POTA8TER12 PO (20:05)
[2019-06-16] MEDS ORDERED: BEN50 PO (20:05)
[2019-06-16] MEDS ORDERED: AMLO10TA PO (20:05)
[2019-06-16] MEDS ORDERED: ALPR0.5T2 PO (20:05)
[2019-06-16] MEDS ORDERED: HYDR100T79 PO (20:05)
[2019-06-16] MEDS ORDERED: RISP0.5T3 PO (20:05)
[2019-06-16] MEDS ORDERED: GABA300C PO (20:05)
[2019-06-16] MEDS ORDERED: FURO-572 PO (20:05)
[2019-06-16] MEDS ORDERED: SIMV20TA1 PO (20:05)
[2019-06-16] MEDS ORDERED: TOPI50TA PO (20:05)
[2019-06-16] MEDS ORDERED: LOSA25TA43 PO (20:05)
[2019-06-16] MEDS ORDERED: METO25TA PO (20:05)
[2019-06-16] MEDS ORDERED: METF-350 PO (20:05)
[2019-06-16] MEDS ORDERED: QUET25TA PO (20:05)
[2019-06-16] MEDS ORDERED: ASPI-1205 PO (20:05)
[2019-06-16] MEDS ORDERED: NITROGLYCERIN 0.4 MG TAB SL PRN (20:11)
[2019-06-16] MEDS ORDERED: SIMVASTATIN 20 MG TAB PO SCH (21:00)
[2019-06-16] MEDS: BLOOD GLUCOSE MONITORING 1 DEV DEV FS SCH (21:00)
[2019-06-16] MEDS ORDERED: POTASSIUM CHLORIDE 8 MEQ TABER PO SCH (21:00)
[2019-06-16] MEDS ORDERED: diphenhydrAMINE 50 MG CAP PO SCH (21:00)
[2019-06-16] MEDS ORDERED: hydrALAZINE 25 MG TAB PO ONE (21:00)
[2019-06-16] MEDS ORDERED: GABAPENTIN 300 MG CAP PO SCH (21:00)
[2019-06-16] MEDS ORDERED: ALPRAZolam 0.5 MG TAB PO SCH (21:00)
[2019-06-16] MEDS ORDERED: POTASSIUM CHLORIDE 10 MEQ TABER PO SCH (21:29)
[2019-06-16] MEDS ORDERED: PRON INH (21:30)
[2019-06-16] MEDS ORDERED: BUDE1AER2 IH (21:30)
[2019-06-16] MEDS ORDERED: methylPREDNISolone SS 40 MG/ML VIAL IVP SCH (22:00)
[2019-06-16] MEDS ORDERED: ALPRAZolam 0.25 MG TAB ONE (22:44)
[2019-06-16] MEDS ORDERED: hydrALAZINE 10 MG TAB ONE (22:45)
[2019-06-16] MEDS ORDERED: predniSONE 20 MG TAB PO SCH ×2 (22:45→22:55)
[2019-06-16] MEDS ORDERED: BENZONATATE 100 MG CAPLF PO PRN (22:55)
[2019-06-16] MEDS ORDERED: QUEtiapine FUMARATE 100 MG TAB PO ONE (23:20)
[2019-06-16] MEDS ORDERED: diphenhydrAMINE 50 MG CAP PO ONE (23:20)
[2019-06-16] MEDS ORDERED: metFORMIN 500 MG TAB PO ONE (23:20)
[2019-06-16] MEDS ORDERED: PREG150C PO (23:20)
[2019-06-16] MEDS ORDERED: PREGABALIN 50 MG CAP PO ONE (23:20)
[2019-06-17] MEDS ORDERED: methylPREDNISolone SS 40 MG/ML VIAL IVP SCH (05:00)
[2019-06-17] MEDS ORDERED: LEVOFLOXACIN 750 MG TAB ONE (06:01)
[2019-06-17 06:21] LABS: BASOPHILS % (AUTO) 0.4 % (0.0-2.0); EOSINOPHILS # (AUTO) 0.1 K/uL (0-0.4); EOSINOPHILS % (AUTO) 1.5 % (0.0-4.0); HEMATOCRIT 37.7 % (36-48); HEMOGLOBIN 12.1 g/dL (12.0-16.0); LYMPHOCYTES # (AUTO) 2.7 K/uL (2.5-16.5); LYMPHOCYTES % (AUTO) 35.1 % (20.5-51.1); MEAN CORPUSCULAR HEMOGLOBIN 29 pg (27-31); MEAN CORPUSCULAR HGB CONC 32 g/dL (33-37); MEAN CORPUSCULAR VOLUME 89.4 fL (80-94); MONOCYTES # (AUTO) 0.6 K/uL (0.8-1.0); MONOCYTES % (AUTO) 8.1 % (1.7-9.3); NEUTROPHILS # (AUTO) 4.2 K/uL (1.8-7.7); NEUTROPHILS % (AUTO) 54.9 % (42.2-75.2); PLATELET COUNT (AUTO) 152 K/uL (140-450); RED BLOOD CELL COUNT(AUTO) 4.22 MIL/uL (4.20-5.40); WHITE BLOOD COUNT (AUTO) 7.7 K/uL (4.8-10.8)
[2019-06-17] MEDS: BLOOD GLUCOSE MONITORING 1 DEV DEV FS SCH (06:28)
[2019-06-17 06:43] LABS: ANION GAP 14.3 (8-16); CARBON DIOXIDE 24.4 mmol/L (21-32); POTASSIUM 3.7 mmol/L (3.5-5.1)
[2019-06-17] MEDS ORDERED: metFORMIN 500 MG TAB PO SCH (08:00)
[2019-06-17] MEDS ORDERED: TOPIRAMATE 100 MG TAB PO SCH (09:00)
[2019-06-17] MEDS ORDERED: PREGABALIN 50 MG CAP PO SCH (09:00)
[2019-06-17] MEDS ORDERED: diphenhydrAMINE 50 MG CAP PO SCH (09:00)
[2019-06-17] MEDS ORDERED: FUROSEMIDE 40 MG TAB PO SCH (09:00)
[2019-06-17] MEDS ORDERED: ASPIRIN 325 MG TAB PO SCH (09:00)
[2019-06-17] MEDS ORDERED: LISINOPRIL 5 MG TAB PO SCH (09:00)
[2019-06-17] MEDS ORDERED: LEVOFLOXACIN 750 MG TAB PO SCH (09:00)
[2019-06-17] MEDS ORDERED: amLODIPine 5 MG TAB PO SCH (09:00)
[2019-06-17] MEDS ORDERED: risperiDONE 1 MG TAB PO SCH (09:00)
[2019-06-17] MEDS ORDERED: METOPROLOL 25 MG TAB PO SCH (09:00)
[2019-06-17] MEDS ORDERED: LOSARTAN 50 MG TAB PO SCH (09:00)
[2019-06-17] MEDS ORDERED: hydrALAZINE 25 MG TAB PO SCH (09:00)
[2019-06-17] MEDS ORDERED: NON-FORMULARY ITEM (Budesonide/Formoterol Fumarate* (Symbicort 80-4.5 Mcg Inhaler*) 2 PUFF IH SCH (09:00)
[2019-06-17] MEDS ORDERED: QUEtiapine FUMARATE 100 MG TAB PO SCH (09:00)
== END 2019-06-17 07:55 | disposition left against medical advice (07) ==
LOC: MED 16:14 → MTU 19:16
PROVIDERS: ADMIT General Practice; ATTEND General Practice
DX: I25.2 Old myocardial infarction (principal); Z86.73 Personal history of transient ischemic attack (TIA), and cerebral infarction without residual deficits; R07.9 Chest pain, unspecified; E11.40 Type 2 diabetes mellitus with diabetic neuropathy, unspecified; I50.9 Heart failure, unspecified; F17.210 Nicotine dependence, cigarettes, uncomplicated; F31.9 Bipolar disorder, unspecified; F12.10 Cannabis abuse, uncomplicated; F14.10 Cocaine abuse, uncomplicated; F25.9 Schizoaffective disorder, unspecified; I11.0 Hypertensive heart disease with heart failure; Z79.899 Other long term (current) drug therapy; Z79.82 Long term (current) use of aspirin
CPT/HCPCS: 36415; 71045; 80048; 80053; 80305; 81001; 81025; 82150; 82948; 83036; 83605; 83690; 83735; 83880; 84100; 84134; 84439; 84443; 84484; 85025; 85610; 85730; 87040; 87081; 87086; 93005; 96372; 99285; G0378; J0696; J1644; J2270; J7060; J7512; Q0163

== ENCOUNTER 2020-04-07 18:20 | Emergency (ER) | payer MEDICAID ==
[~2020-04-07] VITALS: Ht 170.2 cm; Wt 117.9 kg
[~2020-04-07 18:20] MED LIST changes: +ALPR0.5T2 PO; +AMLO10TA PO; +ASPI-1205 PO; +BEN50 PO; +BUDE1AER2 IH; +FURO-572 PO; +GABA300C PO; +LOSA25TA43 PO; +METF-350 PO; +METO25TA PO; +POTA8TER12 PO; +PREG150C PO; +PRON INH; +QUET25TA PO; +RISP0.5T3 PO; +SIMV20TA1 PO; +TOPI50TA PO
[2020-04-07 18:28] VITALS: BP 98/45
--- NOTE | 2020-04-07 19:00 | NUR ---
PATIENT CALLED TO BE SEEN BY ERMD , NO RESPONSE PATIENT LEFT WITHOUT BEING SEEN BY DR. DELGADO. NO FURTHER CARE PROVIDED FOR PATIENT.
--- NOTE | 2020-04-07 19:05 | NUR ---
CALLED FOR THE SECOND TIME NO RESPONSE
--- NOTE | 2020-04-07 19:10 | NUR ---
CALLED FOR THE THIRD TIME NO RESPONSE
== END 2020-04-07 19:00 | disposition left against medical advice (07) ==
LOC: MED 18:20
DX: M54.9 Dorsalgia, unspecified (principal); Z53.21 Procedure and treatment not carried out due to patient leaving prior to being seen by health care provider

== ENCOUNTER 2021-06-25 14:28 | Emergency (ER) | payer MEDICAID ==
[~2021-06-25] VITALS: Ht 165.1 cm; Wt 136.1 kg
[~2021-06-25 14:28] MED LIST changes: +POTA8TAB19 PO; -POTA8TER12 PO
[2021-06-25 14:30] VITALS: BP 141/73
--- NOTE | 2021-06-25 14:38 | NUR ---
51 Y/O F WC'D TO BED 2, C/O BACK PAIN SINCE YESTERDAY AFTER LIFTING 2 CASES 36 CANS OF SODA FROM [place]. ALLERGIES: BACLOFEN PMH: DM, STROKE IN 2015 (WEAKNESS ON LEFT SIDE), COPD, CHF
[2021-06-25] MEDS ORDERED: NAPR-54 PO (15:15)
[2021-06-25] MEDS ORDERED: CYCL-711 PO (15:15)
[2021-06-25] MEDS ORDERED: LID5T TP (15:15)
[2021-06-25] MEDS ORDERED: KETOROLAC 30 MG/ML VIAL IM ONE (15:15)
[2021-06-25 15:42] VITALS: BP 141/73
--- NOTE | 2021-06-25 15:42 | NUR ---
Patient discharged with v/s stable. Written and verbal after care instructions given and explained. Patient alert, oriented and verbalized understanding of instructions. Ambulatory with steady gait. All questions addressed prior to discharge. ID band removed. Patient advised to follow up with PMD. Rx of flexeril, lidoderm, naproxen given. Patient educated on indication of medication including possible reaction and side effects. Opportunity to ask questions provided and answered.
== END 2021-06-25 15:42 | disposition home or self-care (01) ==
LOC: MED 14:28
DX: S39.012A Strain of muscle, fascia and tendon of lower back, initial encounter (principal); I11.9 Hypertensive heart disease without heart failure; J44.9 Chronic obstructive pulmonary disease, unspecified; Z86.73 Personal history of transient ischemic attack (TIA), and cerebral infarction without residual deficits; X50.0XXA Overexertion from strenuous movement or load, initial encounter; Y93.89 Activity, other specified; Y92.89 Other specified places as the place of occurrence of the external cause; Y99.8 Other external cause status
CPT/HCPCS: 81002; 81025; 96372; 99283; J1885

== ENCOUNTER 2021-08-04 01:05 | Emergency (ER) | payer MEDICAID ==
[~2021-08-04] VITALS: Ht 165.1 cm; Wt 149.7 kg
[~2021-08-04 01:05] MED LIST changes: +CYCL-711 PO; +LID5T TP; +NAPR-54 PO
[2021-08-04 01:06] VITALS: BP 137/77
--- NOTE | 2021-08-04 01:17 | NUR ---
PT NAE FUENTES. TAKEN TO BED 11
--- NOTE | 2021-08-04 01:29 | NUR ---
51 Y/O FEMALE BIBA FROM HOME, C/O BILATERAL LOWER BACK PAIN. PT STATES SINCE 2099 HER PAIN HAS BEEN PROGRESSING. PT DESCRIBE PAIN CONSTANT, RADIATES ACROSS LOWER BACK 12/13. DENIES TRAUMA, NO REDNESS, SWELLING OR BRUISING NOTED. PER BLS, PT AMBULATED TO [facility] VIA STAND AND PIVOT WITH ASSISTANCE AND MOVED TO HOSPITAL BED VIA DRAWSHEET. PT IS SEATED IN BED WITH HOB RAISED, RAILS UP X2, AND BED IN LOWEST SETTING. PT HAS UNLABORED BREATHING AND SPEAKING IN FULL SENTENCES. HX: HLD, HTN, DM ALL: BACLOFEN MED: METFORMIN, AMLODIPINE, ASA, LOSARTAN
[2021-08-04] MEDS ORDERED: NACL 0.9% 1,000 ML IV ONE (01:55)
[2021-08-04] MEDS ORDERED: KETOROLAC 30 MG/ML VIAL IVP ONE (01:55)
--- NOTE | 2021-08-04 03:02 | NUR ---
PT IS UNABLE TO GIVE URINE AT THIS TIME. PT ADVISED ABOUT THE SIDE EFFECTS OF TORADOL. PT IS OK AND STATES SHE HAS NOT HAD A MENSTRUAL PERIOD IN 5 YEARS AND THAT THERE IS NO WAY SHE COULD BE .
--- NOTE | 2021-08-04 03:35 | NUR ---
Dr. Foster examining patient.
[2021-08-04] MEDS ORDERED: MORPHINE SULFATE 4 MG/ML SYR IVP ONE (04:20)
--- NOTE | 2021-08-04 04:21 | NUR ---
# 15 FR Urinary catheter inserted utilizing sterile technique. Immediate return of 400 ml CLEAR YELLOW urine noted. Urine sample collected and sent to lab. Pt tolerated procedure WELL. PURWICK TO SUCTION PLACED AFTER URINE COLLECTED.
--- NOTE | 2021-08-04 04:31 | NUR ---
PT TAKEN TO CT
--- NOTE | 2021-08-04 04:45 | NUR ---
PT RETURN FROM CT
[2021-08-04 05:05] LABS: BILIRUBIN,URINE NEGATIVE (NEGATIVE); BLOOD, URINE NEGATIVE (NEGATIVE); COLOR,URINE YELLOW (YELLOW); LEUKOCYTE ESTERASE ,URINE NEGATIVE (NEGATIVE); NITRITE, URINE NEGATIVE (NEGATIVE); UGLUCOSE NEGATIVE (NEGATIVE)
[2021-08-04] MEDS ORDERED: NAPR-54 PO (06:44)
[2021-08-04] MEDS ORDERED: LID5T TP (06:44)
[2021-08-04] MEDS ORDERED: CYCL-711 PO (06:44)
--- NOTE | 2021-08-04 07:05 | NUR ---
Report and continuation of care received from WU Santos.
--- NOTE | 2021-08-04 07:14 | NUR ---
Contacted states [facility] ETA for transportation 10-15 minutes.
--- NOTE | 2021-08-04 07:24 | NUR ---
Pain 8/ requesting medications for pain. Dr. Long made aware.
--- NOTE | 2021-08-04 07:27 | NUR ---
Patient W/C assisted to restroom
[2021-08-04] MEDS ORDERED: HYDROcodone/APAP 5/325 MG 1 TAB TAB PO ONE (07:30)
--- NOTE | 2021-08-04 07:32 | NUR ---
Pt assisted by WC back to bed 11
--- NOTE | 2021-08-04 07:33 | NUR ---
IV removed, catheter intact and site benign. Applied folded 4x4 gauze and tape to stop bleeding.
[2021-08-04 07:37] VITALS: BP 125/58
--- NOTE | 2021-08-04 07:42 | NUR ---
Patient discharged with v/s stable. Written and verbal after care instructions given and explained. Patient alert, oriented and verbalized understanding of instructions. Ambulatory with steady gait. All questions addressed prior to discharge. ID band removed. Patient advised to follow up with PMD. Rx of Naproxen, Lidocaine patch, Flexeril given. Patient educated on indication of medication including possible reaction and side effects. Opportunity to ask questions provided and answered.
[2021-08-04 12:05] LABS: APPEARANCE,URINE CLEAR (CLEAR)
== END 2021-08-04 07:42 | disposition home or self-care (01) ==
LOC: MED 01:05
DX: M54.9 Dorsalgia, unspecified (principal); I25.2 Old myocardial infarction; J44.9 Chronic obstructive pulmonary disease, unspecified; E11.9 Type 2 diabetes mellitus without complications; I10 Essential (primary) hypertension; Z86.73 Personal history of transient ischemic attack (TIA), and cerebral infarction without residual deficits; Z79.899 Other long term (current) drug therapy; Z79.82 Long term (current) use of aspirin; Z79.84 Long term (current) use of oral hypoglycemic drugs; Z88.8 Allergy status to other drugs, medicaments and biological substances
CPT/HCPCS: 74176; 81003; 96361; 96374; 96375; 99285; J1885; J2270; J7030

== ENCOUNTER 2023-01-31 09:15 | Emergency (ER) | payer MEDICAID ==
[~2023-01-31] VITALS: Ht 167.6 cm; Wt 131.5 kg
[~2023-01-31 09:15] MED LIST changes: +SIMV-372 PO; -SIMV20TA1 PO
[2023-01-31 09:19] VITALS: BP 125/81; PULSE 69; RESP 14; TEMP 98.6; O2SAT 97
[2023-01-31] MEDS ORDERED: ACETAMINOPHEN EXTRA STRENGTH 500 MG TAB PO ONE (09:50)
[2023-01-31 10:35] LABS: ALBUMIN 3.6 g/dL (3.4-5.0); ANION GAP 10.1 (8-16); CALCIUM 7.9 mg/dL (8.5-10.1); CARBON DIOXIDE 28.7 mmol/L (21-32); CREATININE 0.9 mg/dL (0.6-1.3); POTASSIUM 3.8 mmol/L (3.5-5.1); TOTAL BILIRUBIN 0.2 mg/dL (0.0-1.0); TOTAL PROTEIN, SERUM 6.9 g/dL (6.4-8.2)
[2023-01-31 10:37] LABS: BASOPHILS # (AUTO) 0.1 K/uL (0.00-0.22); EOSINOPHILS # (AUTO) 0.1 K/uL (0-0.4); EOSINOPHILS % (AUTO) 1.3 % (0.0-4.0); HEMATOCRIT 38.8 % (36-48); HEMOGLOBIN 12.7 g/dL (12.0-16.0); LYMPHOCYTES # (AUTO) 2.2 K/uL (2.5-16.5); LYMPHOCYTES % (AUTO) 38.6 % (20.5-51.1); MEAN CORPUSCULAR HEMOGLOBIN 29 pg (27-31); MEAN CORPUSCULAR HGB CONC 33 g/dL (33-37); MEAN CORPUSCULAR VOLUME 88.2 fL (80-94); MONOCYTES # (AUTO) 0.4 K/uL (0.8-1.0); MONOCYTES % (AUTO) 6.4 % (1.7-9.3); NEUTROPHILS # (AUTO) 2.9 K/uL (1.8-7.7); NEUTROPHILS % (AUTO) 52.7 % (42.2-75.2); PLATELET COUNT (AUTO) 168 K/uL (140-450); RED CELL DISTRIBUTION WIDTH 14.7 % (11.6-13.7); WHITE BLOOD COUNT (AUTO) 5.6 K/uL (4.8-10.8)
[2023-01-31 10:45] LABS: APPEARANCE,URINE CLEAR (CLEAR); BILIRUBIN,URINE NEGATIVE (NEGATIVE); BLOOD, URINE NEGATIVE (NEGATIVE); COLOR,URINE YELLOW (YELLOW); LEUKOCYTE ESTERASE ,URINE NEGATIVE (NEGATIVE); NITRITE, URINE POSITIVE (NEGATIVE); PROTEIN,URINE NEGATIVE (NEGATIVE); UGLUCOSE NEGATIVE (NEGATIVE); UROBILINOGEN,URINE 0.2 EU/dL (0.2 - 1)
[2023-01-31 10:54] LABS: BACTERIA,URINE 10-30 (MOD) /HPF (None Seen); RBC,URINE 0-5 /HPF (0-5); SQUAMOUS EPITHELIAL CELL,UR 0-3 (FEW) /LPF (0-3 (FEW)); WBC,URINE 0-5 /HPF (0-5)
[2023-01-31] MEDS ORDERED: ACET-10509 PO (11:08)
[2023-01-31] MEDS ORDERED: CEPH-588 PO (11:08)
== END 2023-01-31 11:15 | disposition home or self-care (01) ==
LOC: MED 09:15
DX: N39.0 Urinary tract infection, site not specified (principal); L52 Erythema nodosum; I11.9 Hypertensive heart disease without heart failure; E11.9 Type 2 diabetes mellitus without complications; Z86.73 Personal history of transient ischemic attack (TIA), and cerebral infarction without residual deficits; Z79.4 Long term (current) use of insulin; Z79.899 Other long term (current) drug therapy
CPT/HCPCS: 36415; 71045; 80053; 81001; 85025; 85651; 86140; 87086; 99284